=== PATIENT | female | born 1950 | race Caucasian/White ===

== ENCOUNTER 2020-10-14 12:12 | Emergency (ER) | payer MEDICARE, OTHER ==
--- NOTE | 2020-10-14 12:30 | ERPHSYRPT ---
- History of Present Illness Time Seen by Provider: 10/14/20 12:30 Historian: patient Exam Limitations: no limitations Physician History: This is a 70-year-old obese white female has a history of irritable bowel syndrome and seizure disorder on Dilantin and phenobarbital as well as ulcer disease and presents with 2 to 3-week history of intermittent left lower quadrant and rectal pain/pressure. She was seen a few days ago at [facility] in [facility] for similar symptoms and underwent plain x-ray films. Patient describes her diagnosis from that emergency department as constipation with stool in the left colon. Patient did a digital rectal examination on herself and felt as though there was some tissue type mass present. She has not noticed rectal bleeding. She had no vomiting. She has been having intermittent watery stools. She has no chest pain and she has no shortness of breath. Patient's primary care physician is Dr. Moffett. Patient has had a cholecystectomy in the past. Patient has tried multiple [id number] laxatives, fleets enema, stool softeners, and magnesium citrate without significant improvement. Patient contacted her handicrafts teacher today, Dr. Mcmahan office. The office staff told the patient to come to the emergency department for evaluation. Timing/Duration: week(s) (2 to 3 weeks) Activities at Onset: none Quality: aching, cramping Abdominal Pain Onset Location: LLQ Pain Radiation: no radiation Severity of Pain-Max: mild Severity of Pain-Current: mild Modifying Factors: Worsens With: vomiting Associated Symptoms: diarrhea, No loss of appetite, No nausea Previous symptoms: same symptoms as today, recently seen, recently treated Allergies/Adverse Reactions: hydrocodone Adverse Reaction (Verified 10/14/20 12:33) unknown if allerigic to this still Home Medications: Phenytoin Sod Extended 100 mg* [Dilantin 100 MG] 50 mg PO HS 12/10/13 [History] Phenytoin Sod Extended 100 mg* [Dilantin 100 MG] 100 mg PO BID 12/10/13 [History] Phenobarb 32.4 mg [Phenobarbital 32.4 mg] 2 tab PO DAILY 05/14/14 [History] Amlodipine Besylate 5 mg [Norvasc 5 mg] 2.5 mg PO DAILY 10/14/20 [History] Cholecalciferol (Vitamin D3) [Vitamin D3] 25 mcg PO BID 10/14/20 [History] Famotidine 20 mg PO BID 10/14/20 [History] Fluoxetine HCl 20 mg [Prozac 20 MG] 20 mg PO DAILY 10/14/20 [History] Hydrochlorothiazide 12.5 mg PO DAILY 10/14/20 [History] Lubiprostone 24 mcg PO DAILY 10/14/20 [History] Pyridoxine HCl (Vitamin B6) [Vitamin B-6] 100 mg PO DAILY 10/14/20 [History] Sulfamethoxazole/Trimethoprim [Sulfamethoxazole-Tmp Ds Tablet] 1 tab PO BID 10/14/20 [History] Hx Tetanus, Diphtheria Vaccination/Date Given: Yes Hx Influenza Vaccination/Date Given: No (2011) Hx Pneumococcal Vaccination/Date Given: No Travel Risk - International Travel Have you traveled outside of the country in past 3 weeks: No - Coronavirus Screening Are you exhibiting any of the following symptoms?: No Close contact with a COVID-19 positive Pt in past 14-21 Days: No - Review of Systems Constitutional: No Symptoms Eyes: No Symptoms Ears, Nose, & Throat: No Symptoms Respiratory: No Symptoms Cardiac: No Symptoms Abdominal/Gastrointestinal: Abdominal Pain (Left lower quadrant), Diarrhea Genitourinary Symptoms: No Symptoms Musculoskeletal: No Symptoms Skin: No Symptoms Neurological: No Symptoms Psychological: No Symptoms Endocrine: No Symptoms Hematologic/Lymphatic: No Symptoms Immunological/Allergic: No Symptoms All Other Systems: Reviewed and Negative - Past Medical History Pertinent Past Medical History: Yes Neurological History: Seizures (45 year history of taking Dilantin and phenobarbital with no active seizure past 20 years.) ENT History: No Pertinent History Cardiac History: No Pertinent History Respiratory History: Bronchitis Endocrine Medical History: No Pertinent History Musculoskeletal History: Arthritis, Fractures GI Medical History: No Pertinent History, Hernia, Ulcer History: No Pertinent History Psycho-Social History: No Pertinent History Female Reproductive Disorders: No Pertinent History Other Medical History: IBS - Past Surgical History Past Surgical History: Yes Neuro Surgical History: No Pertinent History Cardiac: No Pertinent History Respiratory: No Pertinent History Gastrointestinal: Cholecystectomy Genitourinary: No Pertinent History Musculoskeletal: No Pertinent History, Other Female Surgical History: Hysterectomy Other Surgical History: partial spleen removal, spur removed from shoulder, "something" removed from neck. - Social History Smoking Status: Never smoker Exposure to second hand smoke: No Drug Use: none Patient Lives Alone: No - Nursing Vital Signs Nursing Vital Signs: Initial Vital Signs Temperature 97.2 F 10/14/20 12:20 Pulse Rate 76 10/14/20 12:20 Respiratory Rate 16 10/14/20 12:20 Blood Pressure 152/87 10/14/20 12:20 O2 Sat by Pulse Oximetry 94 L 10/14/20 12:20 Pain Scale Pain Intensity 0 - Physical Exam General Appearance: no apparent distress, alert, anxiety, obese Eye Exam: PERRL/EOMI, eyes nml inspection Ears, Nose, Throat Exam: normal ENT inspection, moist mucous membranes Neck Exam: normal inspection, non-tender, supple, full range of motion Respiratory Exam: normal breath sounds, lungs clear, airway intact, No chest tenderness, No respiratory distress Cardiovascular Exam: regular rate/rhythm, normal heart sounds, normal peripheral pulses Gastrointestinal/Abdomen Exam: soft, normal bowel sounds, tenderness (Mild left lower quadrant) Pelvic Exam: not done Rectal Exam: not done Extremity Exam: normal inspection, normal range of motion, pelvis stable Neurologic Exam: alert, oriented x 3, cooperative, clinical research nurse coordinator II-XII nml as tested, normal mood/affect, nml cerebellar function, nml station & gait, sensation nml Skin Exam: normal color, warm, dry Lymphatic Exam: No adenopathy SpO2 Interpretation: normal O2 Delivery: Room Air Ordered Tests: Medication Summary Discontinued Medications Generic Name Dose Route Start Last Admin Trade Name Freq PRN Reason Stop Dose Admin Sodium Chloride 1,000 mls @ 999 mls/hr 10/14/20 12:35 10/14/20 14:00 Sodium Chloride 0.9% 1000 Ml IV 10/14/20 13:35 Infused .Q1H1M STA Infusion Sodium Chloride Confirm 10/14/20 12:57 Sodium Chloride 0.9% 1000 Ml Administered 10/14/20 12:58 Dose 1,000 mls @ ud .ROUTE .STK-MED ONE Potassium Chloride 20 meq 10/14/20 14:24 10/14/20 14:40 Klor Con 10 Meq PO 10/14/20 14:25 20 meq STAT ONE Administration Potassium Chloride Confirm 10/14/20 14:39 Klor Con 10 Meq Administered 10/14/20 14:40 Dose 20 meq PO .STK-MED ONE Lab/Rad Data: Laboratory Result Diagrams 10/14/20 12:45 10/14/20 12:45 Laboratory Results 10/14/20 10/14/20 10/14/20 Range/Units 12:45 12:45 12:45 WBC 7.7 (4.0-10.5) K/mm3 RBC 4.21 (4.1-5.4) M/mm3 Hgb 13.9 (12.0-16.0) gm/dl Hct 42.8 (35-47) % MCV 101.7 H (78-100) fl MCH 33.0 H (26-32) pg MCHC 32.5 (32-36) g/dl RDW 13.5 (11.5-14.0) % Plt Count 476 H (150-450) K/mm3 MPV 9.3 (7.5-11.0) fl Gran % 48.6 (36.0-66.0) % Eos # (Auto) 0.19 (0-0.5) Absolute Lymphs (auto) 2.55 (1.0-4.6) Absolute Monos (auto) 1.18 (0.0-1.3) Lymphocytes % 33.0 (24.0-44.0) % Monocytes % 15.3 H (0.0-12.0) % Eosinophils % 2.5 (0.00-5.0) % Basophils % 0.6 (0.0-0.4) % Absolute Granulocytes 3.76 (1.4-6.9) Basophils # 0.05 (0-0.4) Sodium 139 (137-145) mmol/L Potassium 3.3 L (3.5-5.1) mmol/L Chloride 98 (98-107) mmol/L Carbon Dioxide 27 (22-30) mmol/L Anion Gap 16.8 H (5-15) MEQ/L BUN 22 H (7-17) mg/dL Creatinine 1.11 H (0.52-1.04) mg/dL Estimated GFR 52.0 ML/MIN Glucose 112 H (74-106) mg/dL Lactic Acid (0.4-2.0) Calcium 9.2 (8.4-10.2) mg/dL Total Bilirubin 0.20 (0.2-1.3) mg/dL AST 37 H (14-36) U/L ALT 29 (0-35) U/L Alkaline Phosphatase 148 H (38-126) U/L Serum Total Protein 8.1 (6.3-8.2) g/dL Albumin 4.4 (3.5-5.0) g/dL Amylase 72 (30-110) U/L Lipase 83 (23-300) U/L Urine Color (YELLOW) Urine Appearance (CLEAR) Urine pH (5-6) Ur Specific [place] (1.005-1.025) Urine Protein (Negative) Urine Ketones (NEGATIVE) Urine Blood (0-5) Luis Miguel/ul Urine Nitrite (NEGATIVE) Urine Bilirubin (NEGATIVE) Urine Urobilinogen (0-1) mg/dL Ur Leukocyte Esterase (NEGATIVE) Urine WBC (Auto) (0-5) /HPF Urine RBC (Auto) (0-2) /HPF U Hyaline Cast (Auto) (0-2) /LPF U Epithel Cells (Auto) (FEW) /HPF Urine Bacteria (Auto) (NEGATIVE) /HPF Uric Acid Cryst (Auto) (NEGATIVE) /HPF Urine Mucus (Auto) (NEGATIVE) /HPF Urine Culture Reflexed (NO) Urine Glucose (NEGATIVE) mg/dL Phenytoin 16.9 (10-20) ug/mL 10/14/20 10/14/20 Range/Units 12:44 12:40 WBC (4.0-10.5) K/mm3 RBC (4.1-5.4) M/mm3 Hgb (12.0-16.0) gm/dl Hct (35-47) % MCV (78-100) fl MCH (26-32) pg MCHC (32-36) g/dl RDW (11.5-14.0) % Plt Count (150-450) K/mm3 MPV (7.5-11.0) fl Gran % (36.0-66.0) % Eos # (Auto) (0-0.5) Absolute Lymphs (auto) (1.0-4.6) Absolute Monos (auto) (0.0-1.3) Lymphocytes % (24.0-44.0) % Monocytes % (0.0-12.0) % Eosinophils % (0.00-5.0) % Basophils % (0.0-0.4) % Absolute Granulocytes (1.4-6.9) Basophils # (0-0.4) Sodium (137-145) mmol/L Potassium (3.5-5.1) mmol/L Chloride (98-107) mmol/L Carbon Dioxide (22-30) mmol/L Anion Gap (5-15) MEQ/L BUN (7-17) mg/dL Creatinine (0.52-1.04) mg/dL Estimated GFR ML/MIN Glucose (74-106) mg/dL Lactic Acid 1.8 (0.4-2.0) Calcium (8.4-10.2) mg/dL Total Bilirubin (0.2-1.3) mg/dL AST (14-36) U/L ALT (0-35) U/L Alkaline Phosphatase (38-126) U/L Serum Total Protein (6.3-8.2) g/dL Albumin (3.5-5.0) g/dL Amylase (30-110) U/L Lipase (23-300) U/L Urine Color YELLOW (YELLOW) Urine Appearance TURBID (CLEAR) Urine pH 5.0 (5-6) Ur Specific [place] 1.021 (1.005-1.025) Urine Protein 30 (Negative) Urine Ketones NEGATIVE (NEGATIVE) Urine Blood SMALL (0-5) Luis Miguel/ul Urine Nitrite NEGATIVE (NEGATIVE) Urine Bilirubin NEGATIVE (NEGATIVE) Urine Urobilinogen NEGATIVE (0-1) mg/dL Ur Leukocyte Esterase NEGATIVE (NEGATIVE) Urine WBC (Auto) 3-5 (0-5) /HPF Urine RBC (Auto) 6-10 (0-2) /HPF U Hyaline Cast (Auto) 6-10 (0-2) /LPF U Epithel Cells (Auto) RARE (FEW) /HPF Urine Bacteria (Auto) RARE (NEGATIVE) /HPF Uric Acid Cryst (Auto) 25-50 (NEGATIVE) /HPF Urine Mucus (Auto) MODERATE (NEGATIVE) /HPF Urine Culture Reflexed YES (NO) Urine Glucose NEGATIVE (NEGATIVE) mg/dL Phenytoin (10-20) ug/mL - Progress Progress: unchanged Progress Note: 10/14/20 14:43 CAT scan of the abdomen pelvis without contrast shows colonic diverticulosis and bilateral renal cyst. There were no other significant or acute findings in the abdomen and pelvis Counseled pt/family regarding: lab results, diagnosis, need for follow-up, rad results - Departure Departure Disposition: Home Clinical Impression: Rectal pressure, Abdominal pain Condition: Stable Critical Care Time: No Referrals: TORIBIO MOFFETT [Primary Care Provider] - Instructions: Diarrhea and Travelers' Diarrhea, Adult (DC) Additional Instructions: Use [id number] MiraLAX, magnesium citrate and fleets enemas as discussed. Drink plenty of fluids. Follow-up with your primary care physician for further management and referral to a handicrafts teacher as indicated.
[2020-10-14] MEDS ORDERED: Sodium Chloride 0.9% 1000 ML 1,000 ML IV STA (12:35)
[2020-10-14] MEDS ORDERED: Sodium Chloride 0.9% 1000 ML 1,000 ML ONE (12:57)
[2020-10-14 12:59] LABS: ALBUMIN 4.4 g/dL (3.5-5.0); ANION GAP 16.8 MEQ/L (5-15); BILIRUBIN,TOTAL 0.2 mg/dL (0.2-1.3); Calcium 9.2 mg/dL (8.4-10.2); Creatinine 1 1.11 mg/dL (0.52-1.04); Potassium 3.3 mmol/L (3.5-5.1); Total Protein 8.1 g/dL (6.3-8.2)
[2020-10-14 13:02] LABS: Appearance TURBID (CLEAR); Bacteria RARE /HPF (NEGATIVE); Bilirubin NEGATIVE (NEGATIVE); Blood SMALL Ery/ul (0-5); Epithelial Cells RARE /HPF (FEW); Glucose NEGATIVE (NEGATIVE); Ketones NEGATIVE (NEGATIVE); Leukocyte Esterase NEGATIVE (NEGATIVE); Mucus MODERATE /HPF (NEGATIVE); Nitrite NEGATIVE (NEGATIVE); Protein,Urine Dip 30 (Negative); Specific Gravity 1.021 (1.005-1.025); Urobilinogen NEGATIVE mg/dL (0-1)
[2020-10-14 13:04] LABS: Uric Acid Crystals 25-50 /HPF (NEGATIVE)
[2020-10-14 13:13] LABS: Absolute Neutrophil Ct (ANC) 3.76 (1.4-6.9); BASOPHIL % 0.6 % (0.0-0.4); Basophil (Absolute #) 0.05 (0-0.4); Eosinophil % 2.5 % (0.00-5.0); Eosinophil (Absolute #) 0.19 (0-0.5); Hematocrit 42.8 % (35-47); Hemoglobin 13.9 gm/dl (12.0-16.0); Lymphocyte (Absolute #) 2.55 (1.0-4.6); Mean Cell Volume 101.7 fl (78-100); Mean Corpuscular Hgb Concent. 32.5 g/dl (32-36); Mean Platelet Volume 9.3 fl (7.5-11.0); Monocyte (Absolute #) 1.18 (0.0-1.3); Monocytes % 15.3 % (0.0-12.0); Neutrophil % 48.6 % (36.0-66.0); Platelet Count 476 K/mm3 (150-450); Red Blood Count 4.21 M/mm3 (4.1-5.4); Red Cell Distribution Width 13.5 % (11.5-14.0); White Blood Count 7.7 K/mm3 (4.0-10.5)
[2020-10-14 14:24] VITALS: BP 124/69; PULSE 64; O2SAT 96
[2020-10-14] MEDS ORDERED: Klor Con 10 MEQ PO ONE ×2 (14:24→14:39)
--- NOTE | 2020-10-14 14:35 | XRAY ---
Indication: Left lower quadrant pain. Constipation. Rectal pressure. Multiple contiguous axial images obtained through the abdomen and pelvis without contrast. Comparison: September 05, 2017. Lung bases again demonstrates bilateral dependent atelectasis. No infiltrate or effusion. Heart is not enlarged. Noncontrasted stomach and bowel loops are nonobstructed. Again scattered colonic diverticulosis without diverticulitis. There is little to no scattered colonic debris. Appendix not seen. No free fluid/air. Stable splenectomy with tiny residual splenules, bilateral renal cysts, cholecystectomy, and hysterectomy. Remaining liver, pancreas, adrenal glands, kidneys, ureters, and bladder are unremarkable for noncontrast exam. Stable minimal aortoiliac calcifications without AAA. Osseous structures intact again with minimal degenerative changes throughout the thoracolumbar spine. Impression: 1. Again colonic diverticulosis, bilateral renal cysts, and degenerative spondylosis. 2. Remaining CT abdomen/pelvis without contrast exam is negative.
== END 2020-10-14 15:00 | disposition home or self-care (01) ==
LOC: ED 12:12
DX: K62.89 Other specified diseases of anus and rectum (principal); R10.9 Unspecified abdominal pain; K58.9 Irritable bowel syndrome, unspecified; G40.909 Epilepsy, unspecified, not intractable, without status epilepticus; Z79.899 Other long term (current) drug therapy; R19.7 Diarrhea, unspecified
CPT/HCPCS: 36000; 36415; 74176; 80053; 80185; 81001; 82150; 83605; 83690; 85025; 87086; 99284; A9270-GY

== ENCOUNTER 2022-02-12 12:32 | Emergency (ER) | payer MEDICARE, OTHER ==
[2022-02-12 14:41] LABS: Absolute Neutrophil Ct (ANC) 5.15 x10^3/uL (1.4-6.9); Basophil (Absolute #) 0.05 x10^3/uL (0-0.4); Eosinophil % 0.7 % (0.00-5.0); Eosinophil (Absolute #) 0.06 x10^3/uL (0-0.5); Hematocrit 39.9 % (35-47); Hemoglobin 13.3 g/dL (12.0-16.0); Lymphocyte (Absolute #) 1.96 x10^3/uL (1.0-4.6); Lymphocytes % 23.4 % (24.0-44.0); Mean Cell Volume 100.3 fL (78-100); Mean Corpuscular Hemoglobin 33.4 pg (26-32); Mean Corpuscular Hgb Concent. 33.3 g/dL (32-36); Mean Platelet Volume 9.9 fL (7.5-11.0); Monocyte (Absolute #) 1.14 x10^3/uL (0.0-1.3); Monocytes % 13.6 % (0.0-12.0); Neutrophil % 61.5 % (36.0-66.0); Platelet Count 387 x10^3/uL (150-450); Red Blood Count 3.98 x10^6/uL (4.1-5.4); Red Cell Distribution Width 13.1 % (11.5-14.0); White Blood Count 8.4 x10^3/uL (4.0-10.5)
[2022-02-12] MEDS ORDERED: Sodium Chloride 0.9% 1000 ML 1,000 ML IV SCH (14:45)
--- NOTE | 2022-02-12 14:45 | ERPHSYRPT ---
- History of Present Illness Time Seen by Provider: 02/12/22 13:00 Source: patient Exam Limitations: no limitations Patient Subjective Stated Complaint: Pt has been on Dilantin and Phenobarbatol for 52 years and she has a new neurologist that changed her to keppra 500 mg, she is now taking 32.4 mg now of phenobarb till the end of this week and she is on 200 mg of Dilantin that she is staying on, pt began having the shakes and crying on Saturday and feels like she is having withdrawal symptoms, told her that she should have been off of them years ago because no one is on them anymore however she has not had a seizure in approx 30 years, pt did go to [facility] on Saturday and was diagnosed with a UTI and placed on Nitrofurantoin Triage Nursing Assessment: Pt brought to the ER by her , hypertensive, denies pain, pulses normal, shaking, no difficulty breathing, doesn't appear to be in any distress Physician History: Patient is a 71-year-old female sent to our ED by her primary care doctor for a stroke work-up. Patient states that she has been experiencing tremors. Patient attributes her tremors to the tapering of her chronic seizure medications. Patient's primary care doctor believes her tremors may be due to a stroke. Primary care doctor asking us to initiate a stroke work-up. Patient otherwise voices no other complaints at this time. No focal or lateralizing symptoms. No slurred speech. No weakness. Portions of this note were created with voice recognition technology. There may be grammatical, spelling, punctuation or sound alike errors Timing/Duration: week(s) Severity: moderate Modifying Factors: Improves With: nothing Associated Symptoms: denies symptoms Allergies/Adverse Reactions: hydrocodone Adverse Reaction (Verified 10/14/20 12:33) unknown if allerigic to this still Home Medications: Phenytoin Sod Extended 100 mg* [Dilantin 100 MG] 50 mg PO HS 12/10/13 [History] Phenytoin Sod Extended 100 mg* [Dilantin 100 MG] 100 mg PO BID 12/10/13 [History] Phenobarb 32.4 mg [Phenobarbital 32.4 mg] 2 tab PO DAILY 05/14/14 [History] Amlodipine Besylate 5 mg [Norvasc 5 mg] 2.5 mg PO DAILY 10/14/20 [History] Cholecalciferol (Vitamin D3) [Vitamin D3] 25 mcg PO BID 10/14/20 [History] Famotidine 20 mg PO BID 10/14/20 [History] Fluoxetine HCl 20 mg [Prozac 20 MG] 20 mg PO DAILY 10/14/20 [History] Lubiprostone 24 mcg PO DAILY 10/14/20 [History] Pyridoxine HCl (Vitamin B6) [Vitamin B-6] 100 mg PO DAILY 10/14/20 [History] Sulfamethoxazole/Trimethoprim [Sulfamethoxazole-Tmp Ds Tablet] 1 tab PO BID 10/14/20 [History] hydroCHLOROthiazide [Hydrochlorothiazide] 12.5 mg PO DAILY 10/14/20 [History] Hx Tetanus, Diphtheria Vaccination/Date Given: Yes Hx Influenza Vaccination/Date Given: No (2011) Hx Pneumococcal Vaccination/Date Given: No Travel Risk - International Travel Have you traveled outside of the country in past 3 weeks: No - Coronavirus Screening Are you exhibiting any of the following symptoms?: No - Vaccine Status Have you recieved a Covid-19 vaccination: Yes 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: [employer] - Vaccination Dates Date of 2cond Vaccination (if applicable): n/a - Review of Systems Constitutional: No Symptoms, No Fever, No Chills Eyes: No Symptoms Ears, Nose, & Throat: No Symptoms Respiratory: No Symptoms, No Cough, No Dyspnea Cardiac: No Symptoms, No Chest Pain, No Edema, No Syncope Abdominal/Gastrointestinal: No Symptoms, No Abdominal Pain, No Nausea, No Vomiting, No Diarrhea Genitourinary Symptoms: No Symptoms, No Dysuria Musculoskeletal: No Symptoms, No Back Pain, No Neck Pain Skin: No Symptoms, No Rash Neurological: No Symptoms, No Dizziness, No Focal Weakness, No Sensory Changes Psychological: No Symptoms Endocrine: No Symptoms Hematologic/Lymphatic: No Symptoms Immunological/Allergic: No Symptoms All Other Systems: Reviewed and Negative - Past Medical History Pertinent Past Medical History: Yes Neurological History: Seizures, Stroke ENT History: No Pertinent History Cardiac History: No Pertinent History Respiratory History: No Pertinent History Endocrine Medical History: No Pertinent History Musculoskeletal History: Arthritis GI Medical History: No Pertinent History, Hernia, Ulcer History: No Pertinent History Psycho-Social History: No Pertinent History Female Reproductive Disorders: No Pertinent History Other Medical History: IBS - Past Surgical History Past Surgical History: Yes Neuro Surgical History: No Pertinent History Cardiac: No Pertinent History Respiratory: No Pertinent History Gastrointestinal: Cholecystectomy Genitourinary: No Pertinent History Musculoskeletal: No Pertinent History, Other Female Surgical History: Hysterectomy Other Surgical History: partial spleen removal, spur removed from shoulder, "something" removed from neck. - Social History Smoking Status: Never smoker Exposure to second hand smoke: No Drug Use: none Patient Lives Alone: No - Nursing Vital Signs Nursing Vital Signs: Initial Vital Signs Temperature 98.3 F 02/12/22 12:42 Pulse Rate 86 02/12/22 12:42 Blood Pressure 149/78 02/12/22 12:42 O2 Sat by Pulse Oximetry 95 02/12/22 12:42 Pain Scale Pain Intensity 0 - Physical Exam General Appearance: no apparent distress, alert Eye Exam: PERRL/EOMI, eyes nml inspection Ears, Nose, Throat Exam: normal ENT inspection, TMs normal, pharynx normal, moist mucous membranes Neck Exam: normal inspection, non-tender, supple, full range of motion Respiratory Exam: normal breath sounds, lungs clear, airway intact, No chest tenderness, No respiratory distress Cardiovascular Exam: regular rate/rhythm, normal heart sounds, normal peripheral pulses Gastrointestinal/Abdomen Exam: soft, normal bowel sounds, No tenderness, No mass Back Exam: normal inspection, normal range of motion, No CVA tenderness, No vertebral tenderness Extremity Exam: normal inspection, normal range of motion, pelvis stable Neurologic Exam: alert, oriented x 3, cooperative, normal mood/affect, nml cerebellar function, nml station & gait, sensation nml, No motor deficits Skin Exam: normal color, warm, dry, No rash Lymphatic Exam: No adenopathy SpO2 Interpretation: normal SpO2: 95 O2 Delivery: Room Air - Course Nursing assessment & vital signs reviewed: Yes Ordered Tests: Active Orders 24 hr Category Date Time Status Transportation Technician STAT Care 02/12/22 14:37 Active EKG-ER Only STAT Care 02/12/22 15:38 Active IV Insertion STAT Care 02/12/22 14:36 Active Pulse Oximetry (ED) STAT Care 02/12/22 14:36 Active HEAD WITHOUT CONTRAST [CT] Stat Exams 02/12/22 14:44 Completed CBC W DIFF Stat Lab 02/12/22 Completed CMP Stat Lab 02/12/22 Completed MAGNESIUM Stat Lab 02/12/22 Completed TROPONIN Q4H Lab 02/12/22 Completed TROPONIN Q4H Lab 02/12/22 18:45 Ordered TROPONIN Q4H Lab 02/12/22 22:45 Ordered TSH, 3RD Generation Stat Lab 02/12/22 Completed UA W/RFX CULTURE Stat Lab 02/12/22 15:12 Completed Medication Summary Generic Name Dose Route Start Last Admin Trade Name Freq PRN Reason Stop Dose Admin Sodium Chloride 1,000 mls @ 100 mls/hr 02/12/22 14:45 02/12/22 14:49 Sodium Chloride 0.9% 1000 Ml IV 03/14/22 14:44 100 mls/hr .Q10H ASHLEY Administration Lab/Rad Data: Laboratory Result Diagrams 02/12/22 Unknown 02/12/22 Unknown Laboratory Results 02/12/22 02/12/22 02/12/22 Range/Units Unknown Unknown Unknown WBC 8.4 (4.0-10.5) x10^3/uL RBC 3.98 L (4.1-5.4) x10^6/uL Hgb 13.3 (12.0-16.0) g/dL Hct 39.9 (35-47) % MCV 100.3 H (78-100) fL MCH 33.4 H (26-32) pg MCHC 33.3 (32-36) g/dL RDW 13.1 (11.5-14.0) % Plt Count 387 (150-450) x10^3/uL MPV 9.9 (7.5-11.0) fL Gran % 61.5 (36.0-66.0) % Immature Gran % (Auto) 0.2 (0.00-0.4) % Nucleat RBC Rel Count 0.0 (0.00-0.1) % Eos # (Auto) 0.06 (0-0.5) x10^3/uL Immature Gran # (Auto) 0.02 (0.00-0.03) x10^3u/L Absolute Lymphs (auto) 1.96 (1.0-4.6) x10^3/uL Absolute Monos (auto) 1.14 (0.0-1.3) x10^3/uL Absolute Nucleated RBC 0.00 (0.00-0.01) x10^3u/L Lymphocytes % 23.4 L (24.0-44.0) % Monocytes % 13.6 H (0.0-12.0) % Eosinophils % 0.7 (0.00-5.0) % Basophils % 0.6 (0.0-0.4) % Absolute Granulocytes 5.15 (1.4-6.9) x10^3/uL Basophils # 0.05 (0-0.4) x10^3/uL Sodium 140 (137-145) mmol/L Potassium 3.2 L (3.5-5.1) mmol/L Chloride 106 (98-107) mmol/L Carbon Dioxide 26 (22-30) mmol/L Anion Gap 11.1 (5-15) MEQ/L BUN 15 (7-17) mg/dL Creatinine 0.64 (0.52-1.04) mg/dL Estimated GFR > 60.0 ML/MIN Glucose 110 H (74-106) mg/dL Calcium 8.6 (8.4-10.2) mg/dL Magnesium 1.8 (1.6-2.3) mg/dL Total Bilirubin 0.40 (0.2-1.3) mg/dL AST 25 (14-36) U/L ALT 17 (0-35) U/L Alkaline Phosphatase 172 H (38-126) U/L Troponin I < 0.012 (0.000-0.034) ng/mL Serum Total Protein 7.4 (6.3-8.2) g/dL Albumin 3.9 (3.5-5.0) g/dL TSH 3rd Generation 0.963 (0.47-4.68) mIU/L Urinalys Dipstick Clnc Urine Color (YELLOW) Urine Appearance (CLEAR) Urine pH (5-6) Ur Specific [place] (1.005-1.025) POC Urine Protein Conf (Negative) Urine Ketones (NEGATIVE) Urine Nitrite (NEGATIVE) Urine Bilirubin (NEGATIVE) Urine Urobilinogen (0-1) mg/dL Urine Leukocytes (NEGATIVE) Urine WBC (Auto) (0-5) /HPF Urine RBC (Auto) (0-2) /HPF U Hyaline Cast (Auto) (0-2) /LPF U Epithel Cells (Auto) (FEW) /HPF Urine Bacteria (Auto) (NEGATIVE) /HPF Urine RBC (0-5) Luis Miguel/ul Urine Mucus (Auto) (NEGATIVE) /HPF Ur Culture Indicated? Urine Glucose (NEGATIVE) mg/dL 02/12/22 Range/Units 15:12 WBC (4.0-10.5) x10^3/uL RBC (4.1-5.4) x10^6/uL Hgb (12.0-16.0) g/dL Hct (35-47) % MCV (78-100) fL MCH (26-32) pg MCHC (32-36) g/dL RDW (11.5-14.0) % Plt Count (150-450) x10^3/uL MPV (7.5-11.0) fL Gran % (36.0-66.0) % Immature Gran % (Auto) (0.00-0.4) % Nucleat RBC Rel Count (0.00-0.1) % Eos # (Auto) (0-0.5) x10^3/uL Immature Gran # (Auto) (0.00-0.03) x10^3u/L Absolute Lymphs (auto) (1.0-4.6) x10^3/uL Absolute Monos (auto) (0.0-1.3) x10^3/uL Absolute Nucleated RBC (0.00-0.01) x10^3u/L Lymphocytes % (24.0-44.0) % Monocytes % (0.0-12.0) % Eosinophils % (0.00-5.0) % Basophils % (0.0-0.4) % Absolute Granulocytes (1.4-6.9) x10^3/uL Basophils # (0-0.4) x10^3/uL Sodium (137-145) mmol/L Potassium (3.5-5.1) mmol/L Chloride (98-107) mmol/L Carbon Dioxide (22-30) mmol/L Anion Gap (5-15) MEQ/L BUN (7-17) mg/dL Creatinine (0.52-1.04) mg/dL Estimated GFR ML/MIN Glucose (74-106) mg/dL Calcium (8.4-10.2) mg/dL Magnesium (1.6-2.3) mg/dL Total Bilirubin (0.2-1.3) mg/dL AST (14-36) U/L ALT (0-35) U/L Alkaline Phosphatase (38-126) U/L Troponin I (0.000-0.034) ng/mL Serum Total Protein (6.3-8.2) g/dL Albumin (3.5-5.0) g/dL TSH 3rd Generation (0.47-4.68) mIU/L Urinalys Dipstick Clnc MAIN LAB Urine Color YELLOW (YELLOW) Urine Appearance CLEAR (CLEAR) Urine pH 5.5 (5-6) Ur Specific [place] 1.025 (1.005-1.025) POC Urine Protein Conf 30 A (Negative) Urine Ketones TRACE A (NEGATIVE) Urine Nitrite NEGATIVE (NEGATIVE) Urine Bilirubin SMALL A (NEGATIVE) Urine Urobilinogen 0.2 (0-1) mg/dL Urine Leukocytes NEGATIVE (NEGATIVE) Urine WBC (Auto) 0-2 (0-5) /HPF Urine RBC (Auto) 3-5 A (0-2) /HPF U Hyaline Cast (Auto) 0-2 (0-2) /LPF U Epithel Cells (Auto) RARE (FEW) /HPF Urine Bacteria (Auto) RARE (NEGATIVE) /HPF Urine RBC SMALL A (0-5) Luis Miguel/ul Urine Mucus (Auto) SLIGHT A (NEGATIVE) /HPF Ur Culture Indicated? NO Urine Glucose NEGATIVE (NEGATIVE) mg/dL - Progress Progress: improved Progress Note: Telemetry neuro consult feels the patient's experiencing essential tremors from the weaning off of her phenobarb Telemetry neurologist feels patient may be discharged home. No indication for admission or further work-up. We spoke to patient's primary care doctor and communicated this information to her. She will follow-up with our patient within 48 hours for evaluation. Potassium 3.2. Oral potassium replacement administered in our ED. Dictation disclaimer 02/12/22 16:45 Counseled pt/family regarding: lab results, diagnosis, need for follow-up, rad results - Departure Departure Disposition: Home Clinical Impression: Essential tremor, Hypokalemia Condition: Stable Critical Care Time: No Referrals: TORIBIO MOFFETT [Primary Care Provider] - Follow up/PCP as directed Instructions: Essential Tremor Additional Instructions: Discharge/Care Plan AMBERFRANSISCA JIHAN was seen on 02/12/22 in the Emergency Room. The patient was counseled regarding Diagnosis,Lab results, Imaging studies, need for follow up and when to return to the Emergency Room. Prescriptions given: Discharge Note I have spoken with the patient and/or caregivers. I have explained the patient's condition, diagnosis and treatment plan based on the information available to me at this time. I have answered the patient's and/or caregiver's questions and addressed any concerns. The patient and/or caregivers have as good understanding of the patient's diagnosis, condition and treatment plan as can be expected at this point. The vital signs have been stable. The patient's condition is stable and appropriate for discharge from the emergency department. The patient will pursue further outpatient evaluation with the primary care physician or other designated or consulting physician as outlined in the discharge instructions. The patient and/or caregivers are agreeable to this plan of care and follow-up instructions have been explained in detail. The patient and/or caregivers have received these instruction. The patient/and or caregivers are aware that any significant change in condition or worsening of symptoms should prompt an immediate return to this or the closest emergency department or call 911.
[2022-02-12] MEDS ORDERED: Sodium Chloride 0.9% 1000 ML 1,000 ML ONE (14:47)
--- NOTE | 2022-02-12 15:14 | XRAY ---
Indication: Tremors. No known injury. Multiple contiguous axial images obtained through the head without contrast. Comparison: January 08, 2018 Again age-appropriate global atrophy. New mild periventricular degenerative micro-ischemia bilaterally and new remote lacunar infarct right basal ganglia. No acute intracranial hemorrhage, abnormal extra-axial fluid collection, or mass effect. Fourth ventricle is midline without hydrocephalus. Bony calvarium intact. Visualized paranasal sinuses and mastoid air cells are clear. Impression: Nonacute aging brain with remote lacunar infarct right basal ganglia.
[2022-02-12 15:18] LABS: Bacteria RARE /HPF (NEGATIVE); Epithelial Cells RARE /HPF (FEW); Hyaline Casts 0-2 /LPF (0-2); Mucus SLIGHT /HPF (NEGATIVE); WBC 0-2 /HPF (0-5)
[2022-02-12 15:21] LABS: Appearance CLEAR (CLEAR); Bilirubin SMALL (NEGATIVE); Glucose NEGATIVE (NEGATIVE); Ketones TRACE (NEGATIVE); Nitrite NEGATIVE (NEGATIVE); Ph 5.5 (5-6); Protein,Urine Dip 30 (Negative); RBC SMALL Ery/ul (0-5); Specific Gravity 1.025 (1.005-1.025); Urobilinogen 0.2 mg/dL (0-1)
[2022-02-12 15:22] LABS: Urine Cultured Indicated? NO
[2022-02-12 15:23] LABS: ALBUMIN 3.9 g/dL (3.5-5.0); ALKALINE PHOSPHATASE 172 U/L (38-126); ANION GAP 11.1 MEQ/L (5-15); BLOOD UREA NITROGEN 15 mg/dL (7-17); CHLORIDE 106 mmol/L (98-107); Calcium 8.6 mg/dL (8.4-10.2); Carbon Dioxide 26 mmol/L (22-30); Creatinine 1 0.64 mg/dL (0.52-1.04); EST GLOMERULAR FILTRATION RATE > 60.0 ML/MIN; Glucose 110 mg/dL (74-106); MAGNESIUM 1.8 mg/dL (1.6-2.3); Potassium 3.2 mmol/L (3.5-5.1); SGOT/AST 25 U/L (14-36); SGPT/ALT 17 U/L (0-35); SODIUM 140 mmol/L (137-145); TSH, 3RD Generation 0.963 mIU/L (0.47-4.68); Total Protein 7.4 g/dL (6.3-8.2)
[2022-02-12 16:15] VITALS: BP 151/85; PULSE 72
[2022-02-12 16:37] LABS: Dipstick done @ ? MAIN LAB
[2022-02-12 16:48] VITALS: O2SAT 95
[2022-02-12] MEDS ORDERED: Klor Con PO ONE ×2 (16:49→16:50)
== END 2022-02-12 17:00 | disposition home or self-care (01) ==
LOC: ED 12:32
DX: G25.0 Essential tremor (principal); E87.6 Hypokalemia; Z79.899 Other long term (current) drug therapy
CPT/HCPCS: 36000; 36415; 70450; 80053; 81015; 83735; 84443; 84484; 85025; 93005; 93041; 94760; 99284; A9270-GY